=== PATIENT | female | born 1945 | race Caucasian/White ===

== ENCOUNTER → 2016-11-05 08:05 | Outpatient (CLI) | payer MEDICARE | END | disposition home or self-care (01) | LOC: D.US 08:05 | DX: R10.9 Unspecified abdominal pain (principal); R10.2 Pelvic and perineal pain; R42 Dizziness and giddiness ==

== ENCOUNTER 2016-11-10 14:39 | Inpatient (IN) | payer MEDICARE, OTHER ==
[~2016-11-10] VITALS: Ht 167.6 cm; Wt 71.4 kg
[2016-11-10 17:02] LABS: EOSINOPHILS 2.2 % (0-7); HEMATOCRIT 26.9 % (36.0-48.0); IMMATURE GRANULOCYTES 0.1 % (0-5); LYMPHOCYTES 26.2 % (15-50); MCHC 26.8 g/dL (31.0-37.0); MEAN PLATELET VOLUME 8.8 fL (7.4-10.4); MONOCYTES 10.2 % (2-11); NEUTROPHILS 60.3 % (40-80); PLATELET COUNT 462 10x3/uL (130-400); RBC 4.27 10x6/uL (4.00-5.40); RDW 21.4 % (11.5-14.5); WBC 7.1 10x3/uL (4.8-10.8)
[2016-11-10 17:05] LABS: MCH 16.9 pg (26.0-34.0)
[2016-11-10 17:06] LABS: HEMOGLOBIN 7.2 g/dL (12-16)
[2016-11-10 17:26] LABS: ALBUMIN 3.4 g/dL (3.4-5.0); ANION GAP 12.1 mmol/L (8-16); BILIRUBIN - TOTAL 0.22 mg/dL (0.2-1.3); CALCIUM 8.5 mg/dL (8.5-10.1); CARBON DIOXIDE 29.2 mmol/L (21.0-32.0); CREATININE - SERUM 0.8 mg/dL (0.6-1.3); POTASSIUM - SERUM 4.3 mmol/L (3.5-5.1); PROTEIN - SERUM 7.1 g/dL (6.4-8.2)
--- NOTE | 2016-11-10 21:25 | NUR ---
RECIEVED PT TO FLOOR FROM ED VIA WHEELCHAIR. PT TRANSFERED SELF TO BED. ALERT AND ORIENTED AND ABLE TO VERBALIZE NEEDS. IV IS PATENT AND SALINE LOC AT THIS TIME. PT DENIES ANY PAIN. VSS. PT IS ORIENTED TO ROOM AND USE OF CALL LIGHT. NO NEEDS ARE VERBALIZED AT THIS TIME. WILL CONTINUE TO MONITOR. SIDE RAILS ARE UP X 2. BED IS IN LOWEST POSITION. CALL LIGHT IS WITHIN REACH.
--- NOTE | 2016-11-10 23:50 | NUR ---
ADMIT ASSESSMENT COMPLETED. 1ST UNIT PRBC'S STARTED AT THIS TIME. VSS. WILL MONITOR. SIDE RAILS X 2. BED LOW. CALL LIGHT IN REACH.
[2016-11-11] MEDS ORDERED: ZOCOR20 MG PO (00:03)
[2016-11-11] MEDS ORDERED: BENTYL10 MG PO (00:04)
--- NOTE | 2016-11-11 00:05 | NUR ---
PT WITHOUT REACTION TO TRANSFUSION AT THIS TIME. VSS. WILL MONITOR. SIDE RAILS X 2. BED LOW. CALL LIGHT IN REACH.
[2016-11-11] MEDS ORDERED: KRILL OIL 1,001 EAC1 PO (00:06)
[2016-11-11] MEDS ORDERED: VITAMIN D31000 UNIT PO (00:06)
[2016-11-11] MEDS ORDERED: POTASSIUM99 M1 PO (00:08)
[2016-11-11] MEDS ORDERED: CO Q-10200 MG PO (00:08)
[2016-11-11] MEDS ORDERED: GLUCOSAMINE & C1 CAP PO (00:08)
[2016-11-11] MEDS ORDERED: PROBIOTIC1 EAC1 PO (00:09)
[2016-11-11] MEDS ORDERED: BAYER CHEWABLE81 MG PO (00:09)
[2016-11-11] MEDS ORDERED: CENTRUM SILVER1 EAC3 PO (00:10)
--- NOTE | 2016-11-11 01:50 | NUR ---
1ST UNIT PRBC'S FINISHED AND TUBE FLUSHING. VSS. PT REMAINED W/O REACTION. WILL MONITOR. SIDE RAILS X 2. BED LOW. CALL LIGHT IN REACH.
--- NOTE | 2016-11-11 03:35 | NUR ---
PT W/O REACTION AT THIS TIME. VSS. WILL MONITOR. SIDE RAILS X 2. BED LOW. CALL LIGHT IN REACH.
--- NOTE | 2016-11-11 03:35 | NUR ---
2ND UNIT PRBC'S INITIATED. VSS. WILL MONITOR. SIDE RAILS X 2. BED LOW. CALL LIGHT IN REACH.
[2016-11-11 05:20] VITALS: BP 130/63; Ht 167.6 cm; Wt 71.4 kg
--- NOTE | 2016-11-11 05:25 | NUR ---
TRANSFUSION COMPLETED AT THIS TIME AND LINE FLUSHING. VSS. PT REMAINED W/O REACTION. SIDE RAILS X 2. BED LOW. CALL LIGHT IN REACH.
--- NOTE | 2016-11-11 08:23 | NUR ---
PT SEEN AND ASSESSED. NO COMPLAINTS OF PAIN OR DIZZINESS. AWAITING DOCTOR TO SEE IF POSSIBLE DISCHARGE HOME. IS NOT PASSING ANY DARK STOOLS. FAMILY AT BEDSIDE. CALL LIGHT IN REACH
[2016-11-11 09:02] VITALS: BP 146/55
[2016-11-11 10:03] LABS: BASOPHILS 0.3 % (0-2); EOSINOPHILS 1.5 % (0-7); HEMATOCRIT 31.9 % (36.0-48.0); IMMATURE GRANULOCYTES 0.2 % (0-5); LYMPHOCYTES 16.4 % (15-50); MCHC 29.2 g/dL (31.0-37.0); MEAN PLATELET VOLUME 8.8 fL (7.4-10.4); MONOCYTES 9.7 % (2-11); NEUTROPHILS 71.9 % (40-80); PLATELET COUNT 386 10x3/uL (130-400); RDW 23.5 % (11.5-14.5); WBC 8.8 10x3/uL (4.8-10.8)
[2016-11-11 10:11] LABS: HEMOGLOBIN 9.3 g/dL (12-16); MCH 19.4 pg (26.0-34.0); MCV 66.5 fL (80.0-100.0)
[2016-11-11 10:39] LABS: ALBUMIN 3.1 g/dL (3.4-5.0); ANION GAP 12.4 mmol/L (8-16); BILIRUBIN - TOTAL 1.17 mg/dL (0.2-1.3); CALCIUM 8.3 mg/dL (8.5-10.1); CARBON DIOXIDE 26.4 mmol/L (21.0-32.0); CREATININE - SERUM 0.9 mg/dL (0.6-1.3); POTASSIUM - SERUM 3.8 mmol/L (3.5-5.1)
[2016-11-11 11:30] LABS: % SATURATION 57 % (15-55); IRON 259 ug/dl (35-150); TOTAL IRON BIND CAPACITY 451 ug/dl (260-445); UNSAT IRON BIND CAPACITY 192 ug/dl (150-375)
[2016-11-11 13:26] VITALS: BP 154/59
--- NOTE | 2016-11-11 15:22 | NUR ---
Patient Name: MADIHA DIXON Admission Status: ER Accout number: [id number] Admission Date: 11-10-2016 : 1945 Admission Diagnosis:ANEMIA, UNSPECIFIED Attending: MONIK Current LOS: 1 Anticipated DC Date: 11-13-2016 Planned Disposition: Home Primary Insurance: [facility] Discharge Planning Comments: CM MET WITH PATIENT REGARDING D/C NEEDS AND PLANS. PATIENT STATED SHE LIVES WITH HER SPOUSE (SAADIA) AND HE WILL DRIVE HER HOME AT DISCHARGE. PATIENT STATED THERE ARE NO STEPS OR STAIRS AT THEIR HOME. PATIENT STATED SHE IS INDEPENDENT WITH HER CARE AND HAS A WALKER, SHOWER CHAIR, AND ELEV. TOILET SEAT AT HOME. PATIENTS PCP IS DR. BAILEY AND PHARMACY IS [facility]. PATIENT HAS NOT HAD HOME HEALTH BEFORE AND DOES NOT WANT IT. CM WILL CONTINUE TO FOLLOW PATIENT WITH D/C NEEDS AND PLANS. PCP DR. BAILEY [facility]- [phone] SAADIA (SPOUSE) [phone] Paper And Prints Restorer: Selene Cyr Is the patient Alert and Oriented? Yes 0 * How many steps to enter\exit or inside your home? 0 0 * PCP DR. BAILEY 0 * Pharmacy [facility] 0 * Preadmission Environment Home with Family 0 * ADLs Independent 0 * Equipment Elevated [place] Seat Shower Chair Walker 0 * List name and contact numbers for known caregivers / representatives who currently or will assist patient after discharge: SAADIA (SPOUSE) [phone] * Community resources currently utilized None 0 * Additional services required to return to the preadmission environment? Yes 0 * Can the patient safely return to the preadmission environment? Yes 0 * Has this patient been hospitalized within the prior 30 days at any hospital? No 0 Grand Total: 0
[2016-11-11 16:28] VITALS: BP 133/55
--- NOTE | 2016-11-11 18:12 | NUR ---
PT HAS BEEN UP AD ALCIDES IN ROOM AND BATHROOM. SCDS CURRENTLY OFF AT PRESENT. NO ACTIVE BLEEDING NOTED AT THIS TIME. CALL LIGHT IN REACH
--- NOTE | 2016-11-11 19:46 | NUR ---
RECIEVED LYING IN BED WITH HOB ELEVATED. ALERT AND ORIENTED. PLEASANT AND COOPERATIVE. DENIES ANY PAIN. SL TO LEFT HAND PATENT.
[2016-11-11 20:00] VITALS: BP 123/60
[2016-11-12] VITALS: BP 135/73
[2016-11-12 04:00] VITALS: BP 129/65
[2016-11-12 05:49] LABS: BASOPHILS 0.3 % (0-2); EOSINOPHILS 0.1 % (0-7); HEMOGLOBIN 10.1 g/dL (12-16); IMMATURE GRANULOCYTES 0.3 % (0-5); LYMPHOCYTES 10.4 % (15-50); MCHC 28.9 g/dL (31.0-37.0); MEAN PLATELET VOLUME 8.9 fL (7.4-10.4); MONOCYTES 8.4 % (2-11); NEUTROPHILS 80.5 % (40-80); PLATELET COUNT 457 10x3/uL (130-400); RDW 24.4 % (11.5-14.5); WBC 9.3 10x3/uL (4.8-10.8)
[2016-11-12 05:57] LABS: MCH 19.1 pg (26.0-34.0)
[2016-11-12 06:19] LABS: ALBUMIN 3.4 g/dL (3.4-5.0); ANION GAP 11.8 mmol/L (8-16); BILIRUBIN - TOTAL 0.41 mg/dL (0.2-1.3); CALCIUM 9.2 mg/dL (8.5-10.1); CARBON DIOXIDE 28.2 mmol/L (21.0-32.0); CREATININE - SERUM 0.9 mg/dL (0.6-1.3); PROTEIN - SERUM 7.7 g/dL (6.4-8.2)
--- NOTE | 2016-11-12 07:00 | NUR ---
REPORT RECIEVED ASSUMED CARE. PATIENT IN BED WITH IV INTACT. NO COMPLAINTS AT THIS TIME. ASKING FOR 7 UP BC STILL A LITTLE NAUSEATED. GIVEN BY THERMAL SPRAY OPERATOR. PATIENT SITTING UP IN CHAIR WITH CALL LIGHT WITHIN REACH.
[2016-11-12 08:27] VITALS: BP 113/66
--- NOTE | 2016-11-12 08:50 | NUR ---
PATIENT IV LEAKING. DC'D WITH CATH TIP INTACT. NEW IV 20 G RESTARTED IN LEFT HAND X 1 STICK. PATIENT RECIEVED ZOFRAN FOR NAUSEA. IN BED WITH NO OTHER COMPLAINTS. CALL LIGHT WITHIN REACH. FAMILY AT BEDSIDE.
[2016-11-12 10:17] LABS: ERYTHROPOIETIN 160.6 mIU/mL (2.6-18.5)
[2016-11-12 10:17] LABS: FOLATE (FOLIC ACID) - SERUM >20.0 ng/mL (>3.0)
--- NOTE | 2016-11-12 11:00 | NUR ---
PATIENT IN BED WITH NO COMPLAINTS. STATING FEELING MUCH BETTER. IV INTACT. FAMILY AT BESIDE. CALL LIGHT WITHIN REACH.
[2016-11-12] MEDS ORDERED: MIRALAX17 GM PO (12:27)
[2016-11-12 13:47] VITALS: BP 120/64
--- NOTE | 2016-11-12 14:31 | NUR ---
PT IV D/C, CATHETER INTACT AND DRSG APPLIED. TOLERATED WELL. DISCHARGE INSTRUCTIONS GIVEN TO PT AND FAMILY. ALL QUESTIONS ANSWERED.
--- NOTE | 2016-11-12 14:45 | NUR ---
PATIENT ESCORTED OUT OF HOSPITAL VIA WC WITH PERSONAL BELONGINGS TO PRIVATE VEHICLE BY HOSPITAL VOLUNTEER AND .
[2016-11-12 15:20] LABS: SPE - A/G RATIO 1.1 (0.7-1.7); SPE - ALBUMIN 3.3 g/dL (2.9-4.4); SPE - ALPHA-1 GLOBULIN 0.3 g/dL (0.0-0.4); SPE - ALPHA-2 GLOBULIN 0.8 g/dL (0.4-1.0); SPE - BETA GLOBULIN 1.1 g/dL (0.7-1.3); SPE - GAMMA GLOBULIN 0.9 g/dL (0.4-1.8); SPE - M-SPIKE Not Observed g/dL (Not Observed); SPE - TOTAL PROTEIN 6.4 g/dL (6.0-8.5)
--- NOTE | 2016-11-12 15:36 | NUR ---
PATIENT DISCHARGED HOME TODAY WITH NO NEEDS - SPOUSE DRIVING HER.
== END 2016-11-12 16:17 | disposition home or self-care (01) | DRG 812 ==
LOC: D.ER 14:39 → D.MS 19:23
PROVIDERS: Emergency Medicine; Internal Medicine Hematology & Oncology; ADMIT Family Medicine
DX: D64.9 Anemia, unspecified (principal); R55 Syncope and collapse; I10 Essential (primary) hypertension; K21.9 Gastro-esophageal reflux disease without esophagitis; Z85.828 Personal history of other malignant neoplasm of skin; K59.00 Constipation, unspecified; R11.10 Vomiting, unspecified; R63.4 Abnormal weight loss; Z68.25 Body mass index [BMI] 25.0-25.9, adult

== ENCOUNTER → 2016-11-30 09:12 | Outpatient (CLI) | payer MEDICARE, OTHER ==
[2016-11-11 05:20] VITALS: BMI 25.4
[~2016-11-30 09:12] MED LIST: BAYER CHEWABLE81 MG PO; BENTYL10 MG PO; CENTRUM SILVER1 EAC3 PO; CO Q-10200 MG PO; GLUCOSAMINE & C1 CAP PO; KRILL OIL 1,001 EAC1 PO; MIRALAX17 GM PO; POTASSIUM99 M1 PO; PROBIOTIC1 EAC1 PO; VITAMIN D31000 UNIT PO; ZOCOR20 MG PO
== END | disposition home or self-care (01) ==
LOC: D.RAD 11-29 09:22
DX: R11.0 Nausea (principal); R10.9 Unspecified abdominal pain

== ENCOUNTER 2016-11-30 11:16 | Inpatient (IN) | payer MEDICARE, OTHER ==
[~2016-11-30] VITALS: Ht 167.6 cm; Wt 71.1 kg
[2016-11-30 11:54] LABS: BASOPHILS 0.2 % (0-2); EOSINOPHILS 0.1 % (0-7); HEMATOCRIT 38.7 % (36.0-48.0); HEMOGLOBIN 11.5 g/dL (12-16); IMMATURE GRANULOCYTES 0.2 % (0-5); MCH 20.4 pg (26.0-34.0); MCHC 29.7 g/dL (31.0-37.0); MCV 68.5 fL (80.0-100.0); MEAN PLATELET VOLUME 9.2 fL (7.4-10.4); MONOCYTES 15.8 % (2-11); NEUTROPHILS 69.7 % (40-80); PLATELET COUNT 456 10x3/uL (130-400); RBC 5.65 10x6/uL (4.00-5.40); RDW 26.4 % (11.5-14.5); WBC 9.5 10x3/uL (4.8-10.8)
[2016-11-30 12:10] LABS: ALBUMIN 3.7 g/dL (3.4-5.0); ANION GAP 13.5 mmol/L (8-16); BILIRUBIN - TOTAL 0.5 mg/dL (0.2-1.3); CALCIUM 9.1 mg/dL (8.5-10.1); CARBON DIOXIDE 33.1 mmol/L (21.0-32.0); PROTEIN - SERUM 7.4 g/dL (6.4-8.2)
[2016-11-30 12:14] LABS: POTASSIUM - SERUM 2.6 mmol/L (3.5-5.1)
[2016-11-30 14:35] LABS: APPEARANCE HAZY (CLEAR); COLOR YELLOW (YELLOW); GLUCOSE NEGATIVE (NEGATIVE); LEUKOCYTE ESTERASE NEGATIVE (NEGATIVE); NITRITE NEGATIVE (NEGATIVE); PROTEIN TRACE mg/dL (NEGATIVE)
[2016-11-30 14:36] LABS: BACTERIA FEW /hpf (NONE SEEN); BILIRUBIN NEGATIVE (NEGATIVE); EPITHELIAL CELLS OCC /hpf (0-5); HYALINE CAST 0-5 /lpf (NONE SEEN); KETONE MODERATE mg/dL (NEGATIVE); MUCUS <1+ /lpf (NONE SEEN); RED CELLS - URINE 0-5 /hpf (0-5); WHITE CELLS - URINE RARE /hpf (0-5)
[2016-11-30 17:04] VITALS: BP 129/72; BMI 24.5
--- NOTE | 2016-11-30 17:17 | NUR ---
RECEIVED TO ROOM 2226 VIA BED FROM ED. A/O X3. NO C/O AT THIS TIME. SKIN IS INTACT WITHOUT REDNESS. DENIES NEEDS. BOWEL SOUNDS PRESENT AND ACTIVE X4.
[2016-11-30 20:00] VITALS: BP 117/64
--- NOTE | 2016-11-30 23:00 | NUR ---
PATIENT IS AWAKE, ALERT AND ORIENTED X'S 4. RESPIRATIONS ARE EVEN AND UNLABORED ON ROOM AIR. NO SIGNS OF DISTRESS NOTED. BED IN LOWEST POSITION, CALL LIGHT IN REACH. BED RAILS UP X'S 2. ASSISTED PATIENT TO THE BATHROOM. TOLD HER TO PULL THE STRING WHEN SHE IS FINISHED.
--- NOTE | 2016-11-30 23:30 | NUR ---
CHILD DEVELOPMENT INSTRUCTOR ASSISTED PATIENT BACK TO BED.
[2016-12-01] VITALS: BP 106/52
[2016-12-01 06:02] LABS: BASOPHILS 0.3 % (0-2); EOSINOPHILS 0.9 % (0-7); HEMATOCRIT 34.6 % (36.0-48.0); HEMOGLOBIN 10.1 g/dL (12-16); IMMATURE GRANULOCYTES 0.3 % (0-5); LYMPHOCYTES 23.8 % (15-50); MCH 20.3 pg (26.0-34.0); MCHC 29.2 g/dL (31.0-37.0); MCV 69.6 fL (80.0-100.0); MEAN PLATELET VOLUME 9.4 fL (7.4-10.4); MONOCYTES 14.1 % (2-11); NEUTROPHILS 60.6 % (40-80); PLATELET COUNT 407 10x3/uL (130-400); RBC 4.97 10x6/uL (4.00-5.40); RDW 26.8 % (11.5-14.5)
[2016-12-01 06:16] LABS: ALBUMIN 2.8 g/dL (3.4-5.0); ALKALINE PHOSPHATASE 52 U/L (46-116); ALT (SGPT) 33 U/L (10-68); CALCIUM 8.3 mg/dL (8.5-10.1); CARBON DIOXIDE 28.5 mmol/L (21.0-32.0); CHLORIDE - SERUM 96 mmol/L (98-107); MAGNESIUM - SERUM 2.3 mg/dL (1.8-2.4); PHOSPHOROUS 3.6 mg/dL (2.5-4.9); PROTEIN - SERUM 5.9 g/dL (6.4-8.2); SODIUM 136 mmol/L (136-145)
[2016-12-01 06:20] LABS: WBC 5.9 10x3/uL (4.8-10.8)
[2016-12-01 06:38] LABS: CALC OSMOLALITY 270 mosm/kg (275-300); CREATININE - SERUM 0.7 mg/dL (0.6-1.3); UREA NITROGEN 16 mg/dL (7-18); eGFR NON AFRICAN AMERICAN 87 mL/min (90-120)
[2016-12-01 06:39] LABS: GLUCOSE 60 mg/dL (74-106); POTASSIUM - SERUM 2.7 mmol/L (3.5-5.1)
--- NOTE | 2016-12-01 08:12 | NUR ---
AWAKE AND ALERT. ORIENTED X3. NO C/O AT THIS TIME. LUNGS ARE CLEAR BILATERALLY, NO COUGH NOTED. SKIN IS INTACT WITHOUT REDNESS. IV TO RIGHT AC IS PATNET WITHOUT REDNESS AT INSERTION SITE. BOWEL SOUNDS ARE SLIGHTLY HYPOACTIVE THIS AM. DENIES NEEDS.
[2016-12-01 08:42] VITALS: BP 123/62
--- NOTE | 2016-12-01 09:00 | NUR ---
OFF UNIT VIA FOR TEST. TOOK AM MEDS WITHOUT DIFFICULTY.
--- NOTE | 2016-12-01 10:00 | NUR ---
RETURNED FROM TESTING. NO C/O AT THIS TIME. DENIES NEEDS.
--- NOTE | 2016-12-01 10:42 | NUR ---
Patient Name: MADIHA DIXON Admission Status: ER Accout number: [id number] Admission Date: 11-30-2016 : 1945 Admission Diagnosis: Attending: RAZA VANCE Current LOS: 1 Anticipated DC Date: 12-03-2016 Planned Disposition: Home Primary Insurance: [facility] Discharge Planning Comments: CM MET WITH PATIENT AND SPOUSE (SAADIA) REGARDING D/C NEEDS AND PLANS. PATIENT STATED HER SPOUSE WILL DRIVE HER HOME AT DISCHARGE. PATIENT STATED THERE ARE NO STEPS OR STAIRS AT HER HOME. PATIENT STATED SHE IS INDEPENDENT WITH HER CARE AND HAS A SHOWER CHAIR, WALK IN TUB, AND CANE AT HER HOME. PATIENTS PCP IS DR. BAILEY IN THE [facility] AND PHARMACY IS [facility]. PATIENT DOES NOT WANT HOME HEALTH AT THIS TIME. CM WILL CONTINUE TO FOLLOW PATIENT WITH D/C NEEDS AND PLANS. PCP DR. BAILEY [facility]- [phone] SAADIA (SPOUSE) [phone] Talent Scout: Selene Cyr Is the patient Alert and Oriented? Yes 0 * How many steps to enter\exit or inside your home? 0 0 * PCP DR. BAILEY 0 * Pharmacy [facility] 0 * Preadmission Environment Home with Family 0 * ADLs Independent 0 * Equipment Cane Shower Chair 0 * Other Equipment WALK IN TUB 0 * List name and contact numbers for known caregivers / representatives who currently or will assist patient after discharge: SAADIA (SPOUSE) [phone] 0 * Community resources currently utilized None 0 * Additional services required to return to the preadmission environment? Yes 0 * Can the patient safely return to the preadmission environment? Yes 0 * Has this patient been hospitalized within the prior 30 days at any hospital? Yes 0 Grand Total: 0
[2016-12-01 12:52] VITALS: BP 116/60
[2016-12-01 14:28] VITALS: Ht 167.6 cm; Wt 71.1 kg
--- NOTE | 2016-12-01 15:00 | NUR ---
STARTED ENEMAS PER MD ORDERS.
--- NOTE | 2016-12-01 15:30 | NUR ---
HAD 800CC ENEMA. UP TO BR TO EVACUATE. NO STOOL RETURNED.
--- NOTE | 2016-12-01 16:00 | NUR ---
GIVEN 800 CC TAP WATER ENEMA. WILL MONITOR.
--- NOTE | 2016-12-01 16:30 | NUR ---
UP TO BR TO EVACUATE ENEMA. ONLY FLUID RETURNED. NO PARTICULATES AT ALL.
--- NOTE | 2016-12-01 16:50 | NUR ---
GIVEN LAST ENEMA PER RECTUM.
[2016-12-01 16:56] VITALS: BP 137/58
--- NOTE | 2016-12-01 17:10 | NUR ---
UP TO BR WITH SBA. EVACUATED ONLY LIQUID. NO STOOL NOTED. SKIN CARE PER SELF. TO SINK TO PERFORM ADL'S PER SELF.
--- NOTE | 2016-12-01 18:41 | NUR ---
NO RESULTS FROM ENEMAS AT ALL. NO CHANGES NOTED. DENIES NEEDS.
[2016-12-01 20:00] VITALS: BP 125/54
[2016-12-02] VITALS (13 sets, daily range): BP systolic 105–159; BP diastolic 50–72
--- NOTE | 2016-12-02 02:00 | NUR ---
PT IN BED WITH NO DISTRESS. RESPIRATIONS EVEN AND UNLABORED. SIDE RAILS X 2. BED IS LOW. CALL LIGHT IN REACH.
--- NOTE | 2016-12-02 02:04 | NUR ---
REC'D AT CHGE OF SHIFT COMING OUT OF BATH RM.ASSISTED TO BED.DENIES ANY COMPLAINTS OR DISCOMFORT AT PRESENT TIME. WILL CONTINUE TO MONITOR FOR ANY CHGES. AND FOLLOW CURRENT PLAN OF CARE
[2016-12-02 05:38] LABS: BASOPHILS 0.3 % (0-2); HEMATOCRIT 36.9 % (36.0-48.0); HEMOGLOBIN 10.8 g/dL (12-16); IMMATURE GRANULOCYTES 0.4 % (0-5); LYMPHOCYTES 17.9 % (15-50); MCH 20.5 pg (26.0-34.0); MCHC 29.3 g/dL (31.0-37.0); MCV 69.9 fL (80.0-100.0); MEAN PLATELET VOLUME 9.4 fL (7.4-10.4); MONOCYTES 16.6 % (2-11); NEUTROPHILS 63.8 % (40-80); PLATELET COUNT 411 10x3/uL (130-400); RBC 5.28 10x6/uL (4.00-5.40); RDW 27.1 % (11.5-14.5)
[2016-12-02 05:42] LABS: WBC 7.7 10x3/uL (4.8-10.8)
[2016-12-02 05:48] LABS: ALBUMIN 3.1 g/dL (3.4-5.0); ANION GAP 19.1 mmol/L (8-16); BILIRUBIN - TOTAL 0.52 mg/dL (0.2-1.3); CALCIUM 8.6 mg/dL (8.5-10.1); CARBON DIOXIDE 24.9 mmol/L (21.0-32.0); CREATININE - SERUM 0.8 mg/dL (0.6-1.3); MAGNESIUM - SERUM 2.3 mg/dL (1.8-2.4); PHOSPHOROUS 3.6 mg/dL (2.5-4.9); PROTEIN - SERUM 6.3 g/dL (6.4-8.2)
--- NOTE | 2016-12-02 07:15 | NUR ---
REPORT RECIEVED, CARE OF PT ASSUMED. NO COMPLAINTS AT THIS TIME. AT BEDSIDE. BED IN LOWEST POSITION, SIDE RAILS UP X 2, CALL LIGHT WITHIN REACH.
--- NOTE | 2016-12-02 12:51 | NUR ---
NUTRITION MONITORING & EVAL PT CURRENTLY NPO FOR PROCEDURE. WILL PROVIDE DIET WHEN RESUMED. MONITOR INTAKE. RD FOLLOWING
--- NOTE | 2016-12-02 17:45 | NUR ---
PT OFF FLOOR FOR COLONOSCOPY AT THIS TIME.
--- NOTE | 2016-12-02 18:32 | NUR ---
KRYSTYNA INK 2MLS TATOOD.
--- NOTE | 2016-12-02 18:49 | NUR ---
NOTED IV CATHETER TO RIGHT AC INFILTRATED. REMOVED IV WITH CATHETER INTACT. WARM MOIST CLOTHS APPLIED TO RIGHT UPPER EXTREMITY. WILL CONTINUE TO MONITOR.
--- NOTE | 2016-12-02 19:00 | NUR ---
PT STILL GONE FROM FLOOR FOR COLONOSCOPY. IN ROOM.
--- NOTE | 2016-12-02 19:35 | NUR ---
ATTEMPTED TO RESITE IV AND UNSUCESSFUL X2. INFORMED DIA BALLARD ON MED/SURG FLOOR.
[2016-12-03] VITALS (10 sets, daily range): BP systolic 99–148; BP diastolic 53–69
[2016-12-03 05:41] LABS: BASOPHILS 0.2 % (0-2); EOSINOPHILS 0.2 % (0-7); HEMATOCRIT 34.4 % (36.0-48.0); HEMOGLOBIN 10.1 g/dL (12-16); IMMATURE GRANULOCYTES 0.2 % (0-5); LYMPHOCYTES 11.2 % (15-50); MCH 20.4 pg (26.0-34.0); MCHC 29.4 g/dL (31.0-37.0); MCV 69.4 fL (80.0-100.0); MEAN PLATELET VOLUME 9.1 fL (7.4-10.4); MONOCYTES 14.7 % (2-11); NEUTROPHILS 73.5 % (40-80); PLATELET COUNT 396 10x3/uL (130-400); RBC 4.96 10x6/uL (4.00-5.40); RDW 27.2 % (11.5-14.5); WBC 8.9 10x3/uL (4.8-10.8)
[2016-12-03 06:05] LABS: ANION GAP 22.2 mmol/L (8-16); BILIRUBIN - TOTAL 0.6 mg/dL (0.2-1.3); CALCIUM 8.7 mg/dL (8.5-10.1); CARBON DIOXIDE 19.7 mmol/L (21.0-32.0); CREATININE - SERUM 0.8 mg/dL (0.6-1.3); MAGNESIUM - SERUM 2.3 mg/dL (1.8-2.4); PHOSPHOROUS 3.5 mg/dL (2.5-4.9); PROTEIN - SERUM 6.2 g/dL (6.4-8.2)
[2016-12-03 06:09] LABS: POTASSIUM - SERUM 2.9 mmol/L (3.5-5.1)
--- NOTE | 2016-12-03 06:20 | NUR ---
PATIENT IV STARTED IN LEFT HAND. 20 G X 1 STICK. NS AND K+ RIDER INFUSING AT THIS TIME. PATIENT HAS NO COMPLAINTS. NGT LIWS. CALL LIGHT WITHIN REACH.
--- NOTE | 2016-12-03 07:00 | NUR ---
REPORT RECIEVED, ASSUMED CARE OF PT.
--- NOTE | 2016-12-03 12:01 | NUR ---
PT RESTING IN BED. NO COMPLAINTS AT THIS TIME. SIDE RAILS UP X 2, BED IN LOWEST POSITION, CALL LIGHT WITHIN REACH.
--- NOTE | 2016-12-03 15:15 | NUR ---
PRE-OP COMPLETE. PT LEFT FLOOR WITH OR.
--- NOTE | 2016-12-03 16:16 | NUR ---
PRIOR TO SURGERY PT STATED HER HAS LEFT AND WOULD BE BACK AROUND 1800.
--- NOTE | 2016-12-03 16:48 | NUR ---
PT IN SURGERY.
--- NOTE | 2016-12-03 18:50 | NUR ---
150 ML PINK FLUID EMPTIED FROM ROBB DRAIN
--- NOTE | 2016-12-03 19:15 | NUR ---
PATIENT TO ROOM AT THIS TIME. VS STABLE. IV INTACT. NGT TO LIWS. ROBB DRAIN EMPTIED AT THIS TIME. LITE RED FLUID IN DRAIN. DRESSINGS TO ABDOMEN CDI. PATIENT STATES ONLY SMALL AMOUNT OF PAIN. HEALTH PHYSICIST ORDERED. FAMILY AT BEDSIDE. CALL LIGHT WITHIN REACH.
--- NOTE | 2016-12-03 21:30 | NUR ---
PATIENT IN BED WITH NO COMPLAINTS AT THIS TIME. IV INTACT. NGT LIWS. BSCDS ON AND WORKING. VS STABLE. CALL LIGHT WITHIN REACH.
--- NOTE | 2016-12-04 00:15 | NUR ---
PATIENT IN BED WITH EYES CLOSED RESTING QUIETLY. NO COMPLAINTS OR SIGNS OF DISTRESS. CALL LIGHT WITHIN REACH.
--- NOTE | 2016-12-04 02:45 | NUR ---
PATIENT IN BED WITH IV INTACT. NO COMPLAINTS. NGT LIWS. BSCDS ON AND WORKING. ROBB DRAIN COMPRESSED, NO DRAINAGE AT THIS TIME. CALL LIGHT WITHIN REACH.
[2016-12-04 04:09] VITALS: BP 109/59
--- NOTE | 2016-12-04 04:50 | NUR ---
PATIENT IN BED WITH IV INTACT. NGT TO LIWS. EYES CLOSED RESTING QUIETLY. BSCDS ON. CALL LIGHT WITHIN REACH.
[2016-12-04 06:10] LABS: BASOPHILS 0.1 % (0-2); EOSINOPHILS 0 % (0-7); HEMATOCRIT 35.5 % (36.0-48.0); HEMOGLOBIN 10.4 g/dL (12-16); IMMATURE GRANULOCYTES 0.4 % (0-5); LYMPHOCYTES 5.7 % (15-50); MCH 20.6 pg (26.0-34.0); MCHC 29.3 g/dL (31.0-37.0); MCV 70.4 fL (80.0-100.0); MEAN PLATELET VOLUME 9.7 fL (7.4-10.4); MONOCYTES 7.1 % (2-11); NEUTROPHILS 86.7 % (40-80); PLATELET COUNT 322 10x3/uL (130-400); RBC 5.04 10x6/uL (4.00-5.40); RDW 27.3 % (11.5-14.5); WBC 10.7 10x3/uL (4.8-10.8)
[2016-12-04 06:27] LABS: ALKALINE PHOSPHATASE 43 U/L (46-116); ALT (SGPT) 28 U/L (10-68); BILIRUBIN - TOTAL 0.56 mg/dL (0.2-1.3); CALCIUM 7.8 mg/dL (8.5-10.1); CARBON DIOXIDE 18.7 mmol/L (21.0-32.0); CHLORIDE - SERUM 104 mmol/L (98-107); CREATININE - SERUM 0.7 mg/dL (0.6-1.3); MAGNESIUM - SERUM 1.9 mg/dL (1.8-2.4); PHOSPHOROUS 3.3 mg/dL (2.5-4.9); PROTEIN - SERUM 4.9 g/dL (6.4-8.2); SODIUM 137 mmol/L (136-145); UREA NITROGEN 12 mg/dL (7-18); eGFR NON AFRICAN AMERICAN 87 mL/min (90-120)
[2016-12-04 06:28] LABS: ALBUMIN 1.9 g/dL (3.4-5.0); CALC OSMOLALITY 271 mosm/kg (275-300); GLUCOSE 62 mg/dL (74-106); POTASSIUM - SERUM 4.3 mmol/L (3.5-5.1)
--- NOTE | 2016-12-04 06:47 | NUR ---
PATIENT IN BED WITH IV INTACT. NO COMPLAINTS AT THIS TIME. FAMILY AT BEDSIDE. CALL LIGHT WITHIN REACH.
--- NOTE | 2016-12-04 07:30 | NUR ---
RECIEVED PT DURING WALKING ROUNDS. PT RETING IN BED WITH NO COMPLAINTS OF PAIN OR DISCOMFORT AT THIS TIME. ASSESSMENT DONE PER FLOWSHEET. BED IN LOW POSITION AND CALL LIGHT WITHIN REACH. WILL CONTINUE TO [facility].
[2016-12-04 08:10] VITALS: BP 106/62
--- NOTE | 2016-12-04 10:45 | NUR ---
RECIEVED ORDER FOR KUB DUE TO PTS NG TUBE HAVING NO OUTPUT AND PT STATING SHE FELT IT WAS COMING OUT. KUB RESULTED AND WAS INSTRUCTED TO ADVANCE NG TUBE 3-4CM, ADVANCED NG TUBE AT THIS TIME, PT TOLERATED WELL. BED IN LOW POSITION AND CALL LIGHT WITHIN REACH. WILL CONTINUE TO MONITOR.
[2016-12-04 12:40] VITALS: BP 121/53
[2016-12-04 15:57] VITALS: BP 119/61
[2016-12-04 20:00] VITALS: BP 106/55
--- NOTE | 2016-12-04 22:50 | NUR ---
PT ALERT & ORIENTED. LEFT HAND IV LEAKING. RESITED TO LEFT FOREARM BY DIA ONEAL. REEYS CATHETER. EMPTIED ROBB DRAIN 100 ML AT BEGINNING OF SHIFT. SUPERVISOR SMALL APPLIANCE ASSEMBLY FOR PAIN CONTROL ALTHOUGH PT RARELY USES IT. STATES SHE HAS DISCOMFORT NO PAIN. NO NEEDS WILL CONTINUE TO MONITOR.
[2016-12-05] VITALS: BP 114/55
[2016-12-05 04:00] VITALS: BP 114/53
[2016-12-05 05:16] LABS: BASOPHILS 0.1 % (0-2); EOSINOPHILS 0 % (0-7); HEMATOCRIT 31.2 % (36.0-48.0); HEMOGLOBIN 9.2 g/dL (12-16); IMMATURE GRANULOCYTES 0.3 % (0-5); LYMPHOCYTES 6.1 % (15-50); MCH 20.6 pg (26.0-34.0); MCHC 29.5 g/dL (31.0-37.0); NEUTROPHILS 82.5 % (40-80); RBC 4.46 10x6/uL (4.00-5.40); RDW 27.6 % (11.5-14.5); WBC 10.7 10x3/uL (4.8-10.8)
[2016-12-05 05:17] LABS: PLATELET COUNT 230 10x3/uL (130-400)
[2016-12-05 05:39] LABS: ALBUMIN 1.8 g/dL (3.4-5.0); ALKALINE PHOSPHATASE 50 U/L (46-116); ALT (SGPT) 26 U/L (10-68); BILIRUBIN - TOTAL 0.41 mg/dL (0.2-1.3); CALC OSMOLALITY 284 mosm/kg (275-300); CARBON DIOXIDE 23.1 mmol/L (21.0-32.0); CHLORIDE - SERUM 110 mmol/L (98-107); CREATININE - SERUM 0.7 mg/dL (0.6-1.3); GLUCOSE 85 mg/dL (74-106); MAGNESIUM - SERUM 2.1 mg/dL (1.8-2.4); PHOSPHOROUS 2.5 mg/dL (2.5-4.9); PROTEIN - SERUM 5.1 g/dL (6.4-8.2); SODIUM 144 mmol/L (136-145); UREA NITROGEN 11 mg/dL (7-18); eGFR NON AFRICAN AMERICAN 87 mL/min (90-120)
[2016-12-05 05:53] LABS: POTASSIUM - SERUM 2.8 mmol/L (3.5-5.1)
--- NOTE | 2016-12-05 07:30 | NUR ---
RECIEVED PT DURING WALKING ROUNDS, PT RESTING IN BED WITH NO COMPLAINTS OF PAIN OR DISCOMFORT AT THIS TIME. ROBB DRAIN EMPTIED. ASSESSMENT DONE PER FLOWSHEET. BED IN LOW POSITION AND CALL LIGHT WITHIN REACH. WILL CONTINUE TO MONITOR.
[2016-12-05 08:20] VITALS: BP 110/54
--- NOTE | 2016-12-05 09:45 | NUR ---
PT COMPLAINS OF PULLING FEELING AT ROBB DRAIN SITE, CALL PLACED TO ABOUT AMOUNT OF OUTPUT AND PTS PAIN. RECIEVED ORDERS TO PULL DRAIN IF PAIN CONTINUES. INFORMED PT OF PLAN OF CARE, WILL CONTINUE TO MONITOR.
[2016-12-05 12:43] VITALS: BP 107/52
[2016-12-05 15:44] VITALS: BP 114/57
[2016-12-05 19:00] VITALS: BP 119/53
[2016-12-06] VITALS: BP 110/55
--- NOTE | 2016-12-06 03:17 | NUR ---
RN NOTE: PT RESTING QUIETLY IN SEMI ELLER'S POSITION WITY EYES CLOSED AND EASY RESPIRATIONS. IV IN LEFT FA PATENT WITH NS INFUSING AT 125 ML / HR. DILAUDID ELECTRONICS INSTRUCTOR IN USE FOR PAIN CONTROL. REYES CATHETER DRAINING TO GRAVITY WITH YELLOW URINE IN COLLECTION BAG. O2 IN USE AT 2L VIA NC. WILL CONTINUE TO MONITOR FOR NEEDS. SIDE RAILS UP X2 FOR SAFETY.
[2016-12-06 04:00] VITALS: BP 110/53
--- NOTE | 2016-12-06 07:50 | NUR ---
PT AOX4 RESP EVEN AND NONLABORED PT DENIES NEEDS AT THIS TIME IV TO LEFT FOREARM PATENT AND INTACT AT THIS TIME SRX2 BED AT LOWEST SETTING CALL LIGHT WITHIN REACH WILL CONTINUE TO MONITOR
[2016-12-06 10:01] VITALS: BP 107/57
[2016-12-06 13:13] VITALS: BP 102/52
[2016-12-06 19:00] VITALS: BP 122/55
--- NOTE | 2016-12-06 20:57 | NUR ---
REC'D. IN BED.VISITOR AT BEDSIDE ABD LAP SITES X3 WITHOUT REDNESS OR DRAINAGE.WILL CONTINUE TO MONITOR FOR ANY CHGES. AND FOLLOW CURRENT PLAN OF CARE.
--- NOTE | 2016-12-07 02:00 | NUR ---
PT IN BED WITH NO DISTRESS. RESPIRATIONS EVEN AND UNLABORED. SIDE RAILS X 2. BED IS LOW. CALL LIGHT IN REACH.
[2016-12-07 04:00] VITALS: BP 124/63
[2016-12-07 04:37] LABS: BASOPHILS 0.1 % (0-2); EOSINOPHILS 1.7 % (0-7); HEMATOCRIT 29.9 % (36.0-48.0); HEMOGLOBIN 8.9 g/dL (12-16); IMMATURE GRANULOCYTES 0.3 % (0-5); MCH 20.6 pg (26.0-34.0); MCHC 29.8 g/dL (31.0-37.0); MCV 69.4 fL (80.0-100.0); MEAN PLATELET VOLUME 9.1 fL (7.4-10.4); MONOCYTES 10.1 % (2-11); NEUTROPHILS 76.8 % (40-80); PLATELET COUNT 206 10x3/uL (130-400); RBC 4.31 10x6/uL (4.00-5.40); RDW 27.9 % (11.5-14.5)
[2016-12-07 04:53] LABS: CALCIUM 7.6 mg/dL (8.5-10.1); CARBON DIOXIDE 23.8 mmol/L (21.0-32.0); CHLORIDE - SERUM 108 mmol/L (98-107); SODIUM 142 mmol/L (136-145)
[2016-12-07 05:04] LABS: CALC OSMOLALITY 278 mosm/kg (275-300); CREATININE - SERUM 0.4 mg/dL (0.6-1.3); GLUCOSE 66 mg/dL (74-106); UREA NITROGEN 7 mg/dL (7-18); eGFR NON AFRICAN AMERICAN > 90 mL/min (90-120)
[2016-12-07 05:05] LABS: POTASSIUM - SERUM 2.9 mmol/L (3.5-5.1)
--- NOTE | 2016-12-07 07:50 | NUR ---
PT AOX4 RESP EVEN AND NONLABORE PT DENIES NEED AT THIS TIME IV TO LEFT FOREARM PATENT AND INTACT AT THIS TIME SRX2 BED AT LOWEST SETTING CALL LIGHT WITHIN REACH WILL CONTINUE TO MONITOR
[2016-12-07 08:18] VITALS: BP 119/56
[2016-12-07 10:49] LABS: MAGNESIUM - SERUM 1.8 mg/dL (1.8-2.4)
[2016-12-07 10:50] LABS: PHOSPHOROUS 1.8 mg/dL (2.5-4.9)
[2016-12-07 12:44] VITALS: BP 110/56
--- NOTE | 2016-12-07 12:49 | NUR ---
NUTRITION F/U CHART REVIEWED. PT REMAINS NPO. RECOMMEND STARTING NUTRITION SUPPORT IF UNABLE TO TOLERATE PO IN 24 [address] FOLLOWING
[2016-12-07 16:28] VITALS: BP 124/64
[2016-12-07 20:00] VITALS: BP 134/51
--- NOTE | 2016-12-07 20:15 | NUR ---
REC'D. IN BED. AAO X3.ABD. NO-DISTENDED LAP SITES X3. WITHOUT REDNESS OR DRAINAGE.ROBB DRAIN WITH SEROUS DRAINAGE NOTED.DENIES PAIN AT PRESENT TIME. STATES PASSING GAS NOW. TOLERATING CL. LIQ. DIET NO NAUSEA.REYES PATENT DRAINING CONCENTRATED URINE WILL CONTINUE TO MONITOR FOR ANY CHGES AND FOLLOW CURRENT PLAN OF CARE.
[2016-12-08] VITALS: BP 130/62
--- NOTE | 2016-12-08 05:00 | NUR ---
EYES CLOSED RESPIRATIONS WITH EASE AND UNLABORED.
[2016-12-08 05:51] LABS: BASOPHILS 0.1 % (0-2); HEMATOCRIT 30.2 % (36.0-48.0); HEMOGLOBIN 9.3 g/dL (12-16); IMMATURE GRANULOCYTES 0.4 % (0-5); LYMPHOCYTES 12.4 % (15-50); MCHC 30.8 g/dL (31.0-37.0); MCV 68.3 fL (80.0-100.0); MEAN PLATELET VOLUME 9.2 fL (7.4-10.4); MONOCYTES 10.3 % (2-11); NEUTROPHILS 75.8 % (40-80); PLATELET COUNT 214 10x3/uL (130-400); RBC 4.42 10x6/uL (4.00-5.40); RDW 27.9 % (11.5-14.5); WBC 7.8 10x3/uL (4.8-10.8)
[2016-12-08 06:38] LABS: ALBUMIN 1.5 g/dL (3.4-5.0); ALKALINE PHOSPHATASE 50 U/L (46-116); ALT (SGPT) 22 U/L (10-68); CALC OSMOLALITY 274 mosm/kg (275-300); CALCIUM 7.9 mg/dL (8.5-10.1); CHLORIDE - SERUM 103 mmol/L (98-107); CREATININE - SERUM 0.4 mg/dL (0.6-1.3); GLUCOSE 76 mg/dL (74-106); PROTEIN - SERUM 4.6 g/dL (6.4-8.2); SODIUM 139 mmol/L (136-145); UREA NITROGEN 7 mg/dL (7-18); eGFR NON AFRICAN AMERICAN > 90 mL/min (90-120)
[2016-12-08 07:14] LABS: POTASSIUM - SERUM 2.7 mmol/L (3.5-5.1)
--- NOTE | 2016-12-08 08:45 | NUR ---
PT AOX4 RESP EVEN AND NONLABORED PT DENIES NEEDS AT THIS TIME IV TO LEFT ARM PATENT AND INTACT AT THIS TIME SRX2 BED AT LOWEST SETTING CALL LIGHT WITHIN REACH WILL CONTINUE TO MONITOR
[2016-12-08 08:48] VITALS: BP 142/65
[2016-12-08 10:31] LABS: MAGNESIUM - SERUM 1.7 mg/dL (1.8-2.4); PHOSPHOROUS 2.2 mg/dL (2.5-4.9)
[2016-12-08 12:33] VITALS: BP 107/64
[2016-12-08 16:58] VITALS: BP 103/53
[2016-12-08 18:18] LABS: MAGNESIUM - SERUM 1.8 mg/dL (1.8-2.4); PHOSPHOROUS 1.8 mg/dL (2.5-4.9)
[2016-12-08 20:00] VITALS: BP 99/49
--- NOTE | 2016-12-08 22:42 | NUR ---
REC'D SITTING UP IN BED. ALERT AND ORIENTED X4. DENIED PAIN AT THIS TIME. DENIED FURTHER NEEDS AT THIS TIME. POTASSIUM WAS 3.0 AFTER REDRAW, REFUSED THE RIDERS, CALLED DR. IQBAL AND GOT THE OK FROM HIM TO GIVE THE PO LIQUID. PHOS WAS ALSO 1.8 WILL CONT TO GIVE NEEDED. WILL CONT TO MONITOR. INSTRUCTED TO CALL IF NEEDED ANYTHING, VERBALIZED UNDERSTANDING. IS TO BE NPO AFTER MIDNIGHT FOR A PORT PLACEMENT IN AM. CONSENTS ARE SIGNED AND IN CHART. BED LOW, LOCKED, CALL LIGHT IN REACH.
[2016-12-09] VITALS: BP 102/50
--- NOTE | 2016-12-09 | NUR ---
PATIENT RESTING QUIETLY WITH EYES CLOSED. HOB 40 DEGREES. NO SIGNS OF DISTRESS NOTED. BED IN LOWEST POSITION, CALL LIGHT IN REACH. BED RIALS UP X'S 2.
[2016-12-09 05:40] LABS: BASOPHILS 0.1 % (0-2); EOSINOPHILS 2.2 % (0-7); HEMOGLOBIN 9.3 g/dL (12-16); IMMATURE GRANULOCYTES 0.4 % (0-5); LYMPHOCYTES 15.8 % (15-50); MCH 20.9 pg (26.0-34.0); MCV 67.6 fL (80.0-100.0); NEUTROPHILS 65.5 % (40-80); PLATELET COUNT 223 10x3/uL (130-400); RBC 4.44 10x6/uL (4.00-5.40); RDW 27.7 % (11.5-14.5); WBC 6.8 10x3/uL (4.8-10.8)
[2016-12-09 05:56] LABS: ALBUMIN 1.4 g/dL (3.4-5.0); ALKALINE PHOSPHATASE 46 U/L (46-116); ALT (SGPT) 18 U/L (10-68); BILIRUBIN - TOTAL 0.18 mg/dL (0.2-1.3); CALC OSMOLALITY 278 mosm/kg (275-300); CALCIUM 7.3 mg/dL (8.5-10.1); CARBON DIOXIDE 27.9 mmol/L (21.0-32.0); CHLORIDE - SERUM 106 mmol/L (98-107); CREATININE - SERUM 0.4 mg/dL (0.6-1.3); MAGNESIUM - SERUM 1.7 mg/dL (1.8-2.4); POTASSIUM - SERUM 3.3 mmol/L (3.5-5.1); PROTEIN - SERUM 4.4 g/dL (6.4-8.2); SODIUM 140 mmol/L (136-145); UREA NITROGEN 6 mg/dL (7-18); eGFR NON AFRICAN AMERICAN > 90 mL/min (90-120)
[2016-12-09 06:02] LABS: GLUCOSE 137 mg/dL (74-106)
--- NOTE | 2016-12-09 07:30 | NUR ---
RECIEVED PT DURING WALKING ROUNDS, PT RESTING IN BED WITH NO COMPLAINTS OF PAIN OR DISCOMFORT AT THIS TIME. ASSESSMENT DONE PER FLOWSHEET. BED IN LOW POSITION AND CALL LIGHT WITHIN REACH. WILL CONTINUE TO MONITOR.
[2016-12-09 09:17] LABS: FOLATE (FOLIC ACID) - SERUM 15.8 ng/mL (>3.0)
[2016-12-09 09:39] VITALS: BP 123/70
--- NOTE | 2016-12-09 10:05 | NUR ---
IV SITE IN LEFT FOREARM INFILTRATED, REDENED, HARD TO TOUCH, PAINFUL TO PATIENT. IV RESITED IN RIGHT HAND BY ANESTHISIA AFTER A FEW ATTEMPTS, BLOOD RETURN OBTAINED FLUSH AND PATENT.. IV IN LEFT ARM REMOVED INTACT, PRESSRE APPLIED.
--- NOTE | 2016-12-09 10:58 | NUR ---
ERIC REMOCED INTACT PER VERBAL ORDER.
[2016-12-09 11:24] VITALS: BP 122/59
--- NOTE | 2016-12-09 11:25 | NUR ---
PT RETURNED FROM SURGERY AT THIS TIME, PORT IN USE. POST-OP STABILITY VITALS STARTED AT THIS TIME, BED IN LOW POSITION AND CALL LIGHT WITHIN REACH. WILL CONTINUE TO MONITOR.
--- NOTE | 2016-12-09 11:50 | NUR ---
LABS REDRAWN AT THIS TIME PER ORDER FOR ELECTROLYTE PROTOCOL. PT STATED SHE WOULD LIKE TO HAVE ORAL REPLACEMENT MEDICATION, SPOKE WITH BARBIE RESENDIZ AND WAS TOLD PO COULD BE GIVEN AFTER THE COMPLETION OF CT SCAN. WILL FOLLOW E.P. WHEN PT IS ABLE TO TAKE ORAL MEDICATION. PT RESTING IN BED. WILL CONTINUE TO MONITOR.
[2016-12-09 12:41] LABS: MAGNESIUM - SERUM 1.6 mg/dL (1.8-2.4); PHOSPHOROUS 2.3 mg/dL (2.5-4.9); POTASSIUM - SERUM 3.6 mmol/L (3.5-5.1)
--- NOTE | 2016-12-09 13:29 | NUR ---
CM REASSESSMENT NOTE: PATIENT SIGNED THE [facility] FORM FOR [facility] (1ST CHOICE) AND [facility] (2ND CHOICE). SENDING REFERRAL TO [facility] TODAY.
--- NOTE | 2016-12-09 19:00 | NUR ---
REPORT RECEIVED AND CARE OF PT ASSUMED. PT LYING IN SEMI ELLER'S POSITION. LEFT IP PATENT WITH NS W/ 40 KCL INFUSING AT 125 ML / HR. BEREAVEMENT COORDINATOR / DILAUDID IN USE FOR PAIN CONTROL. TELEMETRY IN USE AND READING SR AT THIS ASSESSMENT. DRESSINGS ON ABDOMEN CLEAN AND DRY. ROBB DRAIN COMPRESSED. WILL MONITOR CLOSELY FOR NEEDS.
--- NOTE | 2016-12-09 19:04 | NUR ---
OT NOTE: PT COMPLETED SUPINE TO SIT, WEIGHT SHIFT, AND ROLLING WITH SBA. PT COMPLETED DYNAMIC SITTING BALANCE WITH SBA. PT COMPLETED BUE GROSS MOTOR AND FINE MOTOR AXS FOR INCREASED I WITH ADLS. THANK YOU, ASHLYN CASTILLO/Estelle
[2016-12-09 20:00] VITALS: BP 101/59
--- NOTE | 2016-12-09 21:10 | NUR ---
HS MEDICATIONS GIVEN. WILL CONTINUE TO MONITOR FOR NEEDS.
[2016-12-10] VITALS: BP 110/61
--- NOTE | 2016-12-10 00:30 | NUR ---
ASSISTED PT UP TO USE RESTROOM, WITH 2 PERSON ASSIST.
[2016-12-10 04:00] VITALS: BP 122/73
[2016-12-10 05:30] LABS: BASOPHILS 0 % (0-2); EOSINOPHILS 0.8 % (0-7); HEMATOCRIT 27.5 % (36.0-48.0); HEMOGLOBIN 8.5 g/dL (12-16); IMMATURE GRANULOCYTES 0.5 % (0-5); LYMPHOCYTES 14.9 % (15-50); MCH 21.1 pg (26.0-34.0); MCHC 30.9 g/dL (31.0-37.0); MCV 68.2 fL (80.0-100.0); MONOCYTES 14.1 % (2-11); NEUTROPHILS 69.7 % (40-80); PLATELET COUNT 210 10x3/uL (130-400); RBC 4.03 10x6/uL (4.00-5.40); WBC 7.5 10x3/uL (4.8-10.8)
[2016-12-10 05:59] LABS: ALBUMIN 1.4 g/dL (3.4-5.0); ALKALINE PHOSPHATASE 49 U/L (46-116); ALT (SGPT) 22 U/L (10-68); CALC OSMOLALITY 280 mosm/kg (275-300); CALCIUM 7.8 mg/dL (8.5-10.1); CARBON DIOXIDE 26.6 mmol/L (21.0-32.0); CHLORIDE - SERUM 110 mmol/L (98-107); CREATININE - SERUM 0.4 mg/dL (0.6-1.3); GLUCOSE 109 mg/dL (74-106); MAGNESIUM - SERUM 1.6 mg/dL (1.8-2.4); PHOSPHOROUS 2.2 mg/dL (2.5-4.9); PROTEIN - SERUM 4.4 g/dL (6.4-8.2); SODIUM 142 mmol/L (136-145); UREA NITROGEN 5 mg/dL (7-18); eGFR NON AFRICAN AMERICAN > 90 mL/min (90-120)
[2016-12-10 06:11] LABS: POTASSIUM - SERUM 4.4 mmol/L (3.5-5.1)
[2016-12-10 08:08] VITALS: BP 121/52
--- NOTE | 2016-12-10 08:42 | CN ---
PATIENT NAME:MADIHA DIXON ROLFE MEDICAL RECORD: [id number] : 43 LOCATION:[id number] ADMIT DATE: 12/01/16 ACCOUNT: [id number] CONSULTING PHYSICIAN: WILNER IQBAL MD REFERRING PHYSICIAN: RAZA VANCE M.D. DATE OF CONSULTATION: 11/30/2016 CHIEF COMPLAINT: Bowel obstruction. HISTORY OF PRESENT ILLNESS: The patient either has a bowel obstruction or an ileus. I would favor an ileus. Upon examination, there is no inguinal hernia. I detect no femoral hernia. She has no history of cancer. She has not had an abdominal operation, so I think the significant adhesions are unlikely. I have reviewed her small-bowel follow-through images. I have reviewed the x-ray report. I have reviewed the KUB images from this morning. The entire examination was performed with the presence of a female nurse. Her abdomen is distended. She has not had a bowel movement for 2 weeks. Interestingly, she is not nauseated. Really not having any abdominal pain. Nothing aggravates. Nothing alleviates. I have personally discussed her case with the Emergency Room physician. This is a consultation note addendum. For the typed portion of the consult note, please see the chart. This would include the past medical and surgical history, allergies, family history as well as social history. REVIEW OF SYSTEMS: No chest pain, no shortness of breath, no headache, no rash. The review of systems is negative other than as is described above. PHYSICAL EXAMINATION: GENERAL: The patient does not appear acutely ill. She does not appear chronically ill. HEAD: External ears appear normal. EYES: Extraocular movements are intact. NECK: Trachea is midline. CHEST: No intercostal retractions. PULMONARY: Nonlabored, no stridor. ABDOMEN: Distended. Doughy. Not tympanitic. EXTREMITIES: No peripheral cyanosis. INTEGUMENT: No rash, no ulcerations. PSYCHIATRIC: Normal affect. NEUROLOGIC: Nonfocal, no lethargy. The patient answers questions appropriately, moves all extremities well. BACK: No thoracic kyphosis. LYMPHATICS: No lymphangitic streaking of the exposed extremities. IMPRESSION: Small bowel obstruction versus ileus. PLAN: Serial abdominal examinations. N.p.o. I think we can hold off on nasogastric suction for now. TRANSINT:[id number] Voice Confirmation ID: [id number] DOCUMENT ID: [id number] CONSULT REPORT [id number] MADIHA DIXON ROBERT MD at 0842 CC: [id number] DICTATION DATE: 11/30/161746 SINGING MESSENGER: 11/30/16 2344 ADM IN [place] [id number] [place] [id number]
--- NOTE | 2016-12-10 08:42 | OP ---
PATIENT NAME: MADIHA DIXON [place] MEDICAL RECORD: [id number] :44 LOCATION:D.[facility] ADMISSION DATE:12/01/16 SURGEON: WILNER IQBAL MD DATE OF OPERATION: 12/03/2016 PREOPERATIVE DIAGNOSIS: Obstructing colonic cancer. POSTOPERATIVE DIAGNOSES: Obstructing transverse colon malignancy with direct invasion into the retroperitoneum and also direct invasion into the acute margin of the liver. PROCEDURE: Hand-assisted right hemicolectomy. SURGEON: Wilner Iqbal MD CONTACT CENTER REPRESENTATIVE: None. BLOOD LOSS: Less than 100 cc. ANESTHESIA: General. DRAINS: Times 1 (10-Slovenian round Ottoniel). The patient was found to have an obstructing mass. I saw the patient preoperatively. We discussed the risks, possible complications, alternatives to hand-assisted laparoscopic colectomy, possible open procedure. I specifically discussed the risk of colostomy. OPERATIVE COURSE: The patient was conveyed to the operating room electively on 12/03/2016. General anesthesia was induced by the anesthesia staff. The abdomen was sterilely prepped and draped. A transverse incision was accomplished in the right side of the abdomen, group home between the anterior superior iliac spine and the right costal margin. Sharp dissection was carried down through the skin and subcutaneous tissues. I incised the external oblique aponeurosis along the direction of its fibers. I bluntly dissected down through the internal oblique and transversus abdominis muscles. I entered the peritoneal cavity sharply. An Bill retractor was placed. On top of the Bill retractor, the Gelport was placed. A 12-mm trocar was placed through the Gelport. We insufflated the abdomen. Due to the very dilated large and small bowel, really there was not much room to work. I was able to make an incision and I advanced a 5-mm trocar at the umbilicus and another 5-mm trocar in the lower midline of the abdomen. However, as far as manipulating things internally, there really was not enough room to see any significant structures. I then took the top off the Gelport and desufflated the abdomen. I incised along the right white line of Toldt. I was able to mobilize some of the colon. A pursestring suture of 3-0 Vicryl was applied at the cecum. A small colotomy was accomplished. Through the colotomy, I advanced the pool sucker. I suctioned out the right side of the colon. I then removed the pool sucker and cinched down on the 0 Vicryl and tied. I then stapled across this colotomy with a single firing of the TA-30 stapler. I then exteriorized most of the small bowel. It is going to be necessary to decompress the small bowel as well if we are going to have the chance of getting this patient closed at the end of the operation. A pursestring suture of 3-0 Vicryl was applied at the proximal jejunum. A small enterotomy was accomplished within this pursestring suture. I OPERATIVE REPORT [id number] ZACKMADIHA SANCHEZAIR advanced a pool sucker. I then milked the antral contents in a retrograde fashion and we suctioned out a total of 3 liters of succus and fecal material during this process. I then removed the pool sucker. I tied down on the pursestring suture. I then stapled across the closure with a TA-30 stapler and then excised the tissue that had been stapled off. I irrigated extensively, irrigating the small bowel, as there had been some particulate Gastrografin material that spilled on to the small bowel. This undoubtedly is going to cause a little bit of peritonitis and for that reason, I am going to keep the patient on intravenous antibiotics postoperatively. I returned the small bowel to the peritoneal cavity. I then placed the Gelport back on to the Bill retractor. We had insufflated the abdomen. Utilizing a 5-mm camera, I was able to inspect the abdomen. I noted no liver lesions. Another 5-mm trocar was placed in the epigastrium. I put my hand in the abdomen and begin some blunt dissection up along the hepatic flexure. It was the transverse colon just proximal to the hepatic flexure where I felt the mass. It felt fixed to underlying structures. I was able to free up some of the retroperitoneal attachments to this mass. The mass had directly invaded the acute margin of the liver, so utilizing the Harmonic scalpel, I excised a small portion of the acute margin of the liver. I then took the top off of the Gelport. I started to exteriorize the colon. The ileum was exteriorized, a window was created in the mesentery of the ileum. I then stapled across the ileum with a KARINA-75 stapler. I then began to transect the mesentery of the right colon. I was able to mobilize the right colon some more and sweep down the right ureter. I took down the mesentery with the Harmonic scalpel. I was able to exteriorize part of the transverse colon as well, the distal to the area that was fixed where the mass was present. A window was created in the mesocolon. I stapled across the colon at this site with a KARINA-75 stapler. I began to divide the mesentery of the transverse colon with the Harmonic scalpel. I was able to then deliver up into the wound this fixed mass. It was fixed in the underlying duodenum. I was able to dissect the duodenum off of the mass, so the mass did not invade the duodenum. I partially kocherized the duodenum. I swept down the duodenum, as well as the inferior vena cava. I was able to then deliver the mass up through the Bill retractor. I divided the rest of the interposed mesentery. There were a number of firm lymph nodes that I felt. I then removed the specimen and I opened it up on the back table. I regloved and gown. I felt the liver and I could not feel any metastatic malignancy in the portion of the liver that I could feel, which was the right lobe and the medial aspect of the left lobe. There was a very little bleeding. The ileum and the transverse colon were brought into apposition side by side. I felt the transverse colon looked a little dusky and for this reason, I decided to take some more of the transverse colon. A window was created in the mesentery of the transverse colon. I stapled across the transverse colon with a KARINA-75 stapler. I then took down the mesentery with the Harmonic scalpel. The transverse colon and the ileum were placed in the apposition side by side and sutured in place with several 3-0 Vicryl sutures. A small enterotomy and small colotomy were accomplished. I advanced anvils of the KARINA-75 stapler. I then fired. The resulting intracolonic defect was then closed with a single firing of a TA 60 stapler. This was returned to the peritoneal cavity. I irrigated copiously. I advanced a 10-Slovenian round Ottoniel drain through the lower midline drain. The drain was sutured to skin with a nylon suture. OPERATIVE REPORT [id number] MADIHA DIXON In the right side of the abdomen, I reperitonealized with a running #1 Vicryl. The transverse abdominis and internal oblique muscles were approximated with a running #1 Vicryl. The external oblique aponeurosis was closed with a running #1 Vicryl. The deep adipose tissue was closed with interrupted 3-0 Vicryls. Subcutaneous adipose tissue was closed with interrupted 3-0 Vicryls. The skin was closed with a running intracuticular 3-0 Vicryl. The 5-mm trocars were removed. The trocar site at the umbilicus was closed with interrupted 4-0 Vicryl Rapide sutures. The epigastric trocar site was closed with interrupted intracuticular 3-0 Vicryl. Sterile dressings were applied. The patient was then extubated and conveyed to the post-anesthesia care unit where she was in stable condition. TRANSINT:[id number] Voice Confirmation ID: [id number] DOCUMENT ID: [id number] WILNER IQBAL MD at 0842 CC: SANYA BAILEY DO, RAZA VANCE M.D. and DIAMOND RYAN DO [id number] DICTATION DATE: 12/03/16 183 SALES REPRESENTATIVE AIRCRAFT: 12/03/16 2339 ADM IN [facility] [address] [place] [address]
--- NOTE | 2016-12-10 08:42 | PN ---
PATIENT:MADIHA DIXON MEDICAL RECORD: [id number] LOCATION:D.[facility] ADMISSION DATE: 12/01/16 PROGRESS NOTE DATE OF SERVICE: 12/02/2016 CHIEF COMPLAINT: No bowel movement. The patient has had no bowel function. Her abdomen is diffusely mildly tender. It is quite distended. It is not tympanitic. She is to undergo colonoscopy today. I am anxious to hear the results of the colonoscopy as I fear that she may have a colonic obstruction. Palpation aggravates. Nothing alleviates. It is a crampy pain. It is nonradiating. If nothing is found of significance at the time of colonoscopy, I am going to plan for laparoscopic adhesiolysis, possible exploratory laparotomy tomorrow. I will go ahead and put her on the schedule for this to hold her place on the OR schedule. REVIEW OF SYSTEMS: Positive for nausea. No fever, no chills, no chest pain. Positive for some shortness of breath, positive for dyspnea on exertion. Her review of systems is negative other than as is described above. For the past medical and surgical history, current medications, social history and family history, please see the chart. PHYSICAL EXAMINATION: GENERAL: The patient appears acutely ill. She does not appear chronically ill. VITAL SIGNS: Reviewed. The entire physical examination was performed with the presence of a female nurse. EARS: External ears appear normal. EYES: Extraocular movements are intact. NECK: Trachea is midline. CHEST: No intercostal retractions. PULMONARY: Decreased inspiratory volumes. She is slightly tachypneic. ABDOMEN: Diffusely tender. Distended. EXTREMITIES: No peripheral cyanosis. INTEGUMENT: No rash, no ulcerations. PSYCHIATRIC: Normal affect. NEUROLOGIC: Nonfocal, no lethargy. The patient answers questions appropriately, moves all extremities well. BACK: Mild thoracic kyphosis. LYMPHATIC: No lymphangitic streaking of the exposed extremities. IMPRESSION: Small bowel obstruction versus large bowel obstruction. PLAN: Colonoscopy today. Possible operation as described above tomorrow. TRANSINT:[id number] Voice Confirmation ID: [id number] DOCUMENT ID: [id number] PROGRESS NOTE [id number] DIXONGERMAN DIASWILNER MICHELE MD at 0842 CC: [id number] DICTATION DATE: 12/02/16 1629 STORE SHOPPER: 12/03/16 7744 ADM IN [facility] [address] [id number]
--- NOTE | 2016-12-10 08:42 | OP ---
PATIENT NAME: MADIHA DIXON [place] MEDICAL RECORD: [id number] :44 LOCATION:D.MS [facility]26 ADMISSION DATE:12/01/16 SURGEON: WILNER IQBAL MD DATE OF OPERATION: 12/09/2016 PREOPERATIVE DIAGNOSES: 1. Metastatic colon cancer. 2. In need of IV access for chemotherapy. POSTOPERATIVE DIAGNOSES: 1. Metastatic colon cancer. 2. In need of IV access for chemotherapy. PROCEDURES: 1. Insertion of a left infraclavicular PowerPort under fluoroscopic guidance. 2. Immediate surgeon interpretation of the fluoroscopic images. SURGEON: Wilner Iqbal MD CODER: None. BLOOD LOSS: Minimal. ANESTHESIA: General. COMPLICATIONS: None. The risks, possible complications, and alternatives to the procedure were explained to the patient. She elects to proceed. OPERATIVE COURSE: The patient was conveyed to the operating room electively on 12/09/2016. General anesthesia was induced by the anesthesia staff. The left neck and left chest were sterilely prepped and draped. A transverse incision was accomplished inferior to the left clavicle. Sharp dissection was carried down to the level of the pectoralis fascia. A subcutaneous pocket was created in a caudad direction. I then excised some of the adipose tissue from between the skin and the port pocket. I dissected in the deltopectoral groove. There was a bifurcated cephalic vein and neither one of the bifurcations had a caliber that was significant enough to accept the PowerPort catheter. I then chose a direct stick of the subclavian vein. The patient was positioned in the Trendelenburg position. The subclavian vein was accessed easily through the pocket in an antegrade fashion. Under fluoroscopy, a guidewire passed easily. A dilator sheath was then advanced. The dilator and wire were removed. Through the sheath, the PowerPort catheter was advanced. It was advanced to the cavoatrial junction. It was shortened. The locking device was firmly engaged on to the PowerPort. The PowerPort was then sutured to the underlying pectoralis fascia with 3-point fixation utilizing 3-0 Prolene sutures. I irrigated in the PowerPort pocket. Final fluoroscopic images were obtained. No radiologist was present for this procedure. The surgeon interpretation of the fluoroscopic images is dictated within the body of this operative note. I closed the port pocket with multiple interrupted 3-0 Vicryl sutures for the deep dermis as well as a running intracuticular 4-0 Vicryl for the skin. I then accessed the port. It accessed easily. It flushed easily and aspirated dark, nonpulsatile blood. OPERATIVE REPORT [id number] ZACKMADIHA GORDONCLAIR I left the port access. A sterile dressing was applied. A stat portable chest x-ray is pending. TRANSINT:[id number] Voice Confirmation ID: [id number] DOCUMENT ID: [id number] WILNER IQBAL MD at 0842 CC: RAZA VANCE M.D. and MAYTE FITZPATRICK MD [id number] DICTATION DATE: 12/09/16 1029 GLOVE PAIRER: 12/09/16 1138 ADM IN [id number] [place] [address]
--- NOTE | 2016-12-10 08:42 | PN ---
PATIENT:MADIHA DIXON MEDICAL RECORD: [id number] LOCATION:D.[facility] ADMISSION DATE: 12/01/16 PROGRESS NOTE DATE OF SERVICE: 12/01/2016 PREOPERATIVE DIAGNOSIS: No bowel movement. I have reviewed her small bowel follow through images. I have reviewed her Gastrografin enema images. I have reviewed the Gastrografin enema report. Her abdomen is still quite distended. The physical examination is limited today as the patient just had an enema and is retaining the enema. I told her that if she does not have a return of bowel function by Tuesday, we may be forced to operate and I would try to start that laparoscopically and if I am unable to perform it laparoscopically, then we would continue with an exploratory laparotomy. Palpation aggravates. Nothing alleviates. Her abdomen is more distended than it was yesterday. Past medical and surgical history, current medications, allergies, social history, as well as family history, please see the typed portion of the chart. REVIEW OF SYSTEMS: Positive for nausea. No bowel movement, positive for some shortness of breath. Otherwise, review of systems is negative other than as is described above. PHYSICAL EXAMINATION: GENERAL: The patient does appear acutely ill. She does not appear chronically ill. VITAL SIGNS: Reviewed. The entire physical examination was performed with the presence of a female nurse. EARS: External ears normal. EYES: Extraocular movements are intact. NECK: Trachea is midline. CHEST: No intercostal retractions, shallow breathing. ABDOMEN: Distended diffusely. GENITOURINARY: No incarcerated inguinal hernias. EXTREMITIES: No peripheral cyanosis. INTEGUMENT: No rash and no ulcerations. PSYCHIATRIC: Anxious affect. NEUROLOGIC: Nonfocal, no lethargy. The patient answers questions appropriately, moves all extremities well. BACK: No thoracic kyphosis. LYMPHATIC: No lymphangitic streaking of the exposed extremities. IMPRESSION: Probable small bowel versus large bowel obstruction. PLAN: It is my understanding that a colonoscopy is planned. I would agree with this. If she does not improve by Tuesday, my plan would be laparoscopic adhesiolysis versus exploratory laparotomy. TRANSINT:[id number] Voice Confirmation ID: [id number] DOCUMENT ID: [id number] PROGRESS NOTE [id number] DIXONMADIHA DIAS WILNER GRIDER MD at 0842 CC: [id number] DICTATION DATE: 12/01/16 194 MEDICAL ASSISTANT DERMATOLOGY: 12/02/16 [address] [facility] [address] [id number]
[2016-12-10 12:40] VITALS: BP 130/61
[2016-12-10 16:00] VITALS: BP 117/59
--- NOTE | 2016-12-10 19:15 | NUR ---
ROUNDED ON ROOM. PT SITTING UP IN BED. SCD'S IN PLACE. CALL LIGHT AT SIDE. IV INFUSING TO LEFT IP. ROBB COMPRESSED WITH LIGHT RED DRAINAGE. ALL INCISIONS WITH NO REDNESS, SWELLING, OR PURULANT DISCHARGE. TELE IN PLACE. REPORTS NO NEEDS.
[2016-12-10 20:00] VITALS: BP 125/62
--- NOTE | 2016-12-10 21:00 | NUR ---
PT SITTING UP IN BED. ASSISSTED TO RESTROOM. IV INFUSING. REPORTS NO OTHER NEEDS.
[2016-12-11 00:02] VITALS: BP 128/65
--- NOTE | 2016-12-11 01:39 | NUR ---
PT LYING IN BED WITH EYES CLOSED. RESP EVEN AND UNLABORED. CALL LIGHT AT SIDE. BEDRAILS X2. IV INFUSING.
[2016-12-11 04:00] VITALS: BP 127/67
--- NOTE | 2016-12-11 07:42 | NUR ---
AWAKE AND ALERT. ORIENTED X3. NO C/O AT THIS TIME. LUNGS ARE CLEAR BILATERALLY, NO COUGH NOTED. SKIN IS INTACT WITHOUT REDNESS EXCEPT 3 SMALL INCISION AREAS TO ABDOMEN WHICH HAVE DRY INTACT DRESSINGS IN PLACE. LEFT PORT PATENT WITHOOUT REDNESS AT ISNERTION SITE. DENIES NEEDS. FAMILY AT BEDSIDE.
[2016-12-11 08:00] VITALS: BP 132/66
--- NOTE | 2016-12-11 10:15 | NUR ---
ATE MOST OF BREAKFAST. UP IN HALLWAY AT THIS TIME WITH PT USING RW.
--- NOTE | 2016-12-11 12:30 | NUR ---
ATE MOST OF LUNCH TRAY. NO C/O AT THIS TIME. DENIES NEEDS.
[2016-12-11 12:36] VITALS: BP 140/60
--- NOTE | 2016-12-11 14:54 | NUR ---
UP TO BR WITH ONE PERSON ASSIST. VOIDED WITHOUT DIFFICULTY. SKIN CARE PER SELF.
[2016-12-11 16:09] VITALS: BP 130/68
--- NOTE | 2016-12-11 16:38 | NUR ---
AMBULATED 250 FEET WITH NURSING USING RW. DID WELL. NO C/O PAIN WITH INCREASED ACTIVITY.
--- NOTE | 2016-12-11 17:00 | NUR ---
AMBULATED 250 FEET WITH NURSE. GAVE SELF SPIT BATH AT BEDSIDE. DENIES NEEDS.
--- NOTE | 2016-12-11 18:25 | NUR ---
EMPTIED 30CC SEROUS DRAINAGE FROM ROBB.
--- NOTE | 2016-12-11 18:25 | NUR ---
ATE ABOUT 25% OF SUPPER. NOT VERY HUNGRY. DENIES NEEDS. NO CHANGES NOTED.
--- NOTE | 2016-12-11 19:15 | NUR ---
RECIEVED PT FROM DAY NURSE. PT SITTING UP IN BED. CALL LIGHT AT SIDE. REPORTS NO NEEDS. IV INFUSING TO LEFT IP. SCD'S IN PLACE.
[2016-12-11 20:00] VITALS: BP 160/75
--- NOTE | 2016-12-11 23:35 | NUR ---
ASSISSTED PT TO RESTROOM. REPORTS NO OTHER NEEDS AT THIS TIME.
[2016-12-12] VITALS: BP 139/70
--- NOTE | 2016-12-12 03:37 | NUR ---
PT LYING IN BED WITH EYES CLOSED. RESP EVEN AND UNLABORED. CALL LIGHT AT SIDE. IV INFUSING TO LEFT IP.
[2016-12-12 04:00] VITALS: BP 151/73
--- NOTE | 2016-12-12 04:00 | NUR ---
RN NOTE: PT RESTING QUIETLY AT THIS TIME WITH UNLABORED BREATHING. SIDE RAILS UP X2 FOR SAFETY.
[2016-12-12 05:22] LABS: BASOPHILS 0.4 % (0-2); EOSINOPHILS 5.2 % (0-7); HEMATOCRIT 29.2 % (36.0-48.0); HEMOGLOBIN 8.8 g/dL (12-16); IMMATURE GRANULOCYTES 0.9 % (0-5); LYMPHOCYTES 23.4 % (15-50); MCHC 30.1 g/dL (31.0-37.0); MCV 69.7 fL (80.0-100.0); MEAN PLATELET VOLUME 9.4 fL (7.4-10.4); MONOCYTES 16.1 % (2-11); RBC 4.19 10x6/uL (4.00-5.40)
[2016-12-12 05:23] LABS: PLATELET COUNT 268 10x3/uL (130-400); WBC 5.3 10x3/uL (4.8-10.8)
[2016-12-12 05:39] LABS: CALC OSMOLALITY 275 mosm/kg (275-300); CALCIUM 8.1 mg/dL (8.5-10.1); CARBON DIOXIDE 27.4 mmol/L (21.0-32.0); CHLORIDE - SERUM 107 mmol/L (98-107); CREATININE - SERUM 0.4 mg/dL (0.6-1.3); GLUCOSE 93 mg/dL (74-106); POTASSIUM - SERUM 4.3 mmol/L (3.5-5.1); SODIUM 140 mmol/L (136-145); UREA NITROGEN 4 mg/dL (7-18); eGFR NON AFRICAN AMERICAN > 90 mL/min (90-120)
[2016-12-12 06:41] LABS: MAGNESIUM - SERUM 1.9 mg/dL (1.8-2.4); PHOSPHOROUS 3.7 mg/dL (2.5-4.9)
--- NOTE | 2016-12-12 07:55 | NUR ---
REPORT RECEIVED FROM FRONT OFFICE SPECIALIST NURSE. CALL LIGHT IN REACH.
[2016-12-12 08:15] VITALS: BP 142/73
--- NOTE | 2016-12-12 09:04 | NUR ---
ASSESSMENT COMPLETED. SCDs TO BLE. CALL LIGHT IN REACH. IN ROOM. WILL CONTINUE WITH PLAN OF CARE.
--- NOTE | 2016-12-12 11:33 | NUR ---
AM MEDS ADMINISTERED PER ORDER. IV TUBING CHANGED PER HOSPITAL PROTOCOL. SITTING IN CHAIR PER PT, WHOM SIGNED PATIENT OFF TO NURSING FOR AMBULATION.
[2016-12-12 13:04] VITALS: BP 116/67
--- NOTE | 2016-12-12 13:15 | NUR ---
AMBULATED IN HALLWAY. TOLERATED WELL. CALL LIGHT IN REACH.
--- NOTE | 2016-12-12 15:44 | NUR ---
AT BEDSIDE. NO NEEDS OR PAIN VOICED. CALL LIGHT IN REACH.
[2016-12-12 15:58] VITALS: BP 123/57
--- NOTE | 2016-12-12 16:50 | NUR ---
DENIES NEEDS AT THIS TIME. CALL LIGHT IN REACH
--- NOTE | 2016-12-12 18:28 | NUR ---
NO CHANGES IN INITIAL ASSESSMENT. CALL LIGHT IN REACH. SCDs TO BLE. CALL LIGHT IN REACH. WILL CONTINUE WITH PLAN OF CARE.
[2016-12-12 19:00] VITALS: BP 97/57
--- NOTE | 2016-12-12 19:15 | NUR ---
RECEIVED CARE FROM DAY NURSE. PT SITTING UP IN BED. REPORTS NO NEEDS. CALL LIGHT AT SIDE. IV INFUSING TO LEFT PORT. SCD'S IN PLACE.
[2016-12-13] VITALS: BP 131/66
--- NOTE | 2016-12-13 02:04 | NUR ---
PT LYING IN BED WITH EYES CLOSED. RESP EVEN AND UNLABORED. CALL LIGHT AT SIDE. SCD'S IN PLACE. IV INFUSING TO LEFT PORT.
--- NOTE | 2016-12-13 02:27 | NUR ---
RN NOTE: PT RESTING IN SEMI ELLER'S POSITION WITH EYES CLOSED AND UNLABORED BREATHING. LEFT IP ACCESSED WITH NS W/ 40 KCL INFUSING AT 125 ML / HR. SKEINS YARN EXAMINER / DILAUDID IN UE FOR PAIN CONTROL. WILL CONTINUE TO MONITOR FOR NEEDS.
[2016-12-13 04:00] VITALS: BP 129/62
[2016-12-13 06:02] LABS: BASOPHILS 0.6 % (0-2); EOSINOPHILS 4.9 % (0-7); HEMATOCRIT 27.8 % (36.0-48.0); HEMOGLOBIN 8.3 g/dL (12-16); IMMATURE GRANULOCYTES 0.6 % (0-5); LYMPHOCYTES 18.4 % (15-50); MCH 20.9 pg (26.0-34.0); MCHC 29.9 g/dL (31.0-37.0); MEAN PLATELET VOLUME 9.4 fL (7.4-10.4); MONOCYTES 11.9 % (2-11); NEUTROPHILS 63.6 % (40-80); PLATELET COUNT 279 10x3/uL (130-400); RBC 3.97 10x6/uL (4.00-5.40); RDW 29.1 % (11.5-14.5); WBC 6.3 10x3/uL (4.8-10.8)
[2016-12-13 06:07] LABS: CALC OSMOLALITY 276 mosm/kg (275-300); CARBON DIOXIDE 25.5 mmol/L (21.0-32.0); CHLORIDE - SERUM 109 mmol/L (98-107); CREATININE - SERUM 0.6 mg/dL (0.6-1.3); GLUCOSE 82 mg/dL (74-106); POTASSIUM - SERUM 4.4 mmol/L (3.5-5.1); SODIUM 141 mmol/L (136-145); UREA NITROGEN 4 mg/dL (7-18); eGFR NON AFRICAN AMERICAN > 90 mL/min (90-120)
--- NOTE | 2016-12-13 07:30 | NUR ---
RECIEVED PT DURING WALKING ROUNDS. PT RESTING IN BED WITH NO COMPLAINTS OF PAIN OR DISCOMFORT AT THIS TIME. ASSISTED PT TO CHAIR FOR BREAKFAST. ASSESSMENT DONE PER FLOWSHEET. BED IN LOW POSITION AND CALL LIGHT WITHIN REACH. WILL CONTINUE TO MONITOR.
[2016-12-13 09:26] VITALS: BP 155/69
--- NOTE | 2016-12-13 11:33 | NUR ---
CM REASSESSMENT NOTE: PATIENT IS WALKING 500-1000 FT PER PATIENT AND PT. [facility] STATED SHE WOULD PROBABLY NOT BE ACCEPTED DUE TO HER WALKING THAT FAR. CM VISITED WITH PATIENT AND SHE CHOSE [facility] AND SIGNED THE [facility]IS FORM AND WILL HAVE MED. MGT. AND PT ON DISCHARGE. PATIENT WILL D/C TODAY / SPOUSE DRIVING HER. CM ORDERED A WALKER THROUGH [facility] AND IT WILL BE DELIVERED TO HER ROOM BEFORE D/C. IMM SERVED
--- NOTE | 2016-12-13 11:49 | NUR ---
CM REASSESSMENT NOTE: PATIENT STATED THEY WILL STOP AT [facility] TODAY TO GET A WALKER. HCM IS NOT DELIVERING WALKER
--- NOTE | 2016-12-13 11:55 | NUR ---
SPOKE WITH DR. FITZPATRICK AT THIS TIME ABOUT IRON INFUSION THAT SHE HAD SPOKEN WITH THE PT ABOUT. RECIEVED ORDER TO ADMINISTER IRON INFUSION. PT WILL DISCHARGE AFTER MEDICATION ADMINISTRATION.
[2016-12-13 12:47] VITALS: BP 154/79
--- NOTE | 2016-12-13 17:25 | NUR ---
DEACCESSED PORT AT THIS TIME, SALINE AND HEPARIN FLUSHED. PT GIVEN DISCHARGE INSTRUCTIONS, DISCHARGED VIA WHEELCHAIT TO HOME WITH A FAMILY MEMBER.
== END 2016-12-13 17:27 | disposition home health service (06) | DRG 330 ==
LOC: D.ER 11:16 → D.MS 14:35 → OBSVTIME 14:35 → D.SDCHOLD 14:35 → D.MS 16:47
PROVIDERS: Emergency Medicine; Internal Medicine Gastroenterology; Surgery; ADMIT Family Medicine
PROC: 0DJD8ZZ Inspection of Lower Intestinal Tract, Via Natural or Artificial Opening Endoscopic (ICD-10-PCS; principal; 2016-12-02 16:00)
PROC: 0DTF0ZZ Resection of Right Large Intestine, Open Approach (ICD-10-PCS; 2016-12-03 13:45)
PROC: 0JH63XZ Insertion of Tunneled Vascular Access Device into Chest Subcutaneous Tissue and Fascia, Percutaneous Approach (ICD-10-PCS; 2016-12-09)
PROC: 02HV33Z Insertion of Infusion Device into Superior Vena Cava, Percutaneous Approach (ICD-10-PCS; 2016-12-09)
PROC: B5181ZA Fluoroscopy of Superior Vena Cava using Low Osmolar Contrast, Guidance (ICD-10-PCS; 2016-12-09)
DX: C18.2 Malignant neoplasm of ascending colon (principal); C18.0 Malignant neoplasm of cecum; C77.2 Secondary and unspecified malignant neoplasm of intra-abdominal lymph nodes; E86.0 Dehydration; K59.00 Constipation, unspecified; E87.6 Hypokalemia; I10 Essential (primary) hypertension; D12.4 Benign neoplasm of descending colon; K64.4 Residual hemorrhoidal skin tags; D50.9 Iron deficiency anemia, unspecified

== ENCOUNTER → 2017-01-12 08:54 | Outpatient (CLI) | payer MEDICARE, OTHER ==
[2016-12-01 14:28] VITALS: BMI 24.5
--- NOTE | 2017-01-28 16:56 | EC ---
PATIENT:MADIHA DIXON DATE OF SERVICE: 01/12/17 SEX: F MEDICAL RECORD: [id number] DATE OF : 43 [facility]ATION[facility] AGE OF PATIENT: 71 ADMISSION DATE: 01/12/17 REFERRING PHYSICIAN: INTERPRETING PHYSICIAN: URIAH WATSON MD ECHOCARDIOGRAM REPORT ECHO CHARGES 4 ECHO COMPLETE CLINICAL DIAGNOSIS: MALIGNANT NEOPLASM OF ASCENDING COLON ECHOCARDIOGRAPHIC MEASUREMENTS (adult normal given) AC root (d.<3.7cm) 3.2 cm LV Septum d (<1.2 cm> 1.2 cm Valve Excursion 2.1 cm LV Septum (systole) 2.0 cm Left Atria (s.<4.0cm> 3.6 cm LVPW d(<1.2cm) 1.4 cm RV (d.<2.3cm) 2.3 cm LVPW (sytole) 1.8 cm LV diastole(<5.6CM) 4.8 cm MV E-F(>70mm/sec) cm LV systole 2.3 cm LVOT Diameter 1.7 cm MV exc.(>10mm) cm Est.ejection fraction (50-75%) % Pericardial Effusion N DOPPLER: LVIT cm/sec A 80.0 cm/sec E 69.0 cm/sec LA cm/sec RVSP 21.3 mmHg LVOT 101 cm/sec AOP1/2T m/s Asc. Ao 133 cm/sec RVOT 54.0 cm/sec RA cm/sec PA 73.0 cm/sec AV Gradient Peak 7.0 mmHg AV Mean 3.1 mmHg AV Area 1.7 cm MV Gradient Peak 2.9 mmHg MV Mean 0.94 mmHg MV Area cm COMMENTS: Plate Put In Worker: Jeffery GILES Fiscal Clerk: 3 Dr. Jiménez TAPE# PACS DATE OF SERVICE: 01/12/2017 FINDINGS: 1. Left ventricular chamber size is within normal limits. Left ventricular systolic function is normal. Overall ejection fraction estimated at 55%. 2. Left atrium, right atrium, and right ventricle chamber sizes are within normal limits. 3. Valvular structures have normal structure and motion. 4. Doppler interrogation reveals [id number] aortic insufficiency, mild tricuspid regurgitation, mild mitral regurgitation. No other valvular ECHOCARDIOGRAM REPORT [id number] MADIHA DIXON insufficiency or stenosis. Pulmonary systolic pressure is normal, estimated at 21 mmHg. 5. No evidence of pericardial effusion or left ventricular thrombus. TRANSINT:[id number] Voice Confirmation ID: [id number] DOCUMENT ID: [id number] URIAH WATSON MD at 1656 CC: MAYTE FITZPATRICK MD [id number] DICTATION DATE: 01/13/17 1242 BUTCHER HEAD: 01/13/17 1354 DEP CLI 01/12/17 [id number] [place] [address]
== END | disposition home or self-care (01) ==
LOC: D.ECHO 08:54
DX: C18.2 Malignant neoplasm of ascending colon (principal)

== ENCOUNTER → 2017-08-08 08:53 | Outpatient (CLI) | payer MEDICARE ==
[2016-12-01 14:28] VITALS: BMI 24.5
[~2017-08-08 08:53] MED LIST changes: +CARAFATE1 G PO; +NEXIUM40 MG PO; +PHENERGAN25 M1 PO
== END | disposition home or self-care (01) ==
LOC: D.NM 08:53
DX: C18.2 Malignant neoplasm of ascending colon (principal)

== ENCOUNTER 2017-08-10 05:40 | Outpatient (CLI) | payer MEDICARE ==
[~2017-08-10] VITALS: Ht 167.6 cm; Wt 64.1 kg
[~2017-08-10 05:40] MED LIST changes: -CARAFATE1 G PO; -NEXIUM40 MG PO; -PHENERGAN25 M1 PO
[2017-08-10] MEDS ORDERED: NEXIUM40 MG PO (06:56)
[2017-08-10] MEDS ORDERED: CARAFATE1 G PO (06:56)
[2017-08-10] MEDS ORDERED: PHENERGAN25 M1 PO (06:57)
[2017-08-10 07:10] VITALS: BP 132/64; Ht 167.6 cm; Wt 64.1 kg
[2017-08-10 07:47] LABS: HEMATOCRIT 36.8 % (36.0-48.0); HEMOGLOBIN 12.3 g/dL (12-16); MCHC 33.4 g/dL (31.0-37.0); MCV 104.8 fL (80.0-100.0); MEAN PLATELET VOLUME 10.7 fL (7.4-10.4); RBC 3.51 10x6/uL (4.00-5.40); RDW 13.4 % (11.5-14.5); WBC 5.2 10x3/uL (4.8-10.8)
[2017-08-10 07:55] LABS: PLATELET COUNT 138 10x3/uL (130-400)
[2017-08-10 08:01] LABS: CALC OSMOLALITY 280 mosm/kg (275-300); CALCIUM 8.7 mg/dL (8.5-10.1); CARBON DIOXIDE 27.2 mmol/L (21.0-32.0); CHLORIDE - SERUM 106 mmol/L (98-107); CREATININE - SERUM 0.6 mg/dL (0.6-1.3); GLUCOSE 94 mg/dL (74-106); POTASSIUM - SERUM 3.6 mmol/L (3.5-5.1); SODIUM 141 mmol/L (136-145); UREA NITROGEN 12 mg/dL (7-18); eGFR NON AFRICAN AMERICAN > 90 mL/min (90-120)
[2017-08-10 08:02] LABS: INR 1.06 (0.85-1.17); PROTIME 13.4 SECONDS (11.6-15.0)
[2017-08-10 08:28] LABS: EOSINOPHILS 6 % (0-7); LYMPHOCYTES 31 % (15-50); MONOCYTES 12 % (2-11); NEUTROPHILS 50 % (40-80); PLATELET ESTIMATE NORMAL; ROULEAUX OCC
[2017-08-10 09:27] LABS: APTT 28.7 SECONDS (22.8-39.4)
== END 2017-08-10 11:40 | disposition home or self-care (01) ==
LOC: D.SP 05:40
PROVIDERS: General Practice
DX: R91.1 Solitary pulmonary nodule (principal); C18.2 Malignant neoplasm of ascending colon; Z01.812 Encounter for preprocedural laboratory examination

== ENCOUNTER 2017-08-19 09:50 | Outpatient (CLI) | payer MEDICARE ==
[~2017-08-19] VITALS: Ht 167.6 cm; Wt 65.5 kg
[~2017-08-19 09:50] MED LIST changes: +CARAFATE1 G PO; +NEXIUM40 MG PO; +PHENERGAN25 M1 PO
[2017-08-19 10:56] VITALS: Ht 167.6 cm; Wt 65.5 kg
[2017-08-19 11:40] LABS: BASOPHILS 0.5 % (0-2); EOSINOPHILS 6.4 % (0-7); HEMATOCRIT 38.1 % (36.0-48.0); LYMPHOCYTES 17.5 % (15-50); MCH 35.3 pg (26.0-34.0); MCHC 34.1 g/dL (31.0-37.0); MCV 103.5 fL (80.0-100.0); MEAN PLATELET VOLUME 10.7 fL (7.4-10.4); MONOCYTES 17.9 % (2-11); NEUTROPHILS 57.7 % (40-80); PLATELET COUNT 154 10x3/uL (130-400); RBC 3.68 10x6/uL (4.00-5.40); RDW 12.8 % (11.5-14.5); WBC 5.8 10x3/uL (4.8-10.8)
[2017-08-19 11:57] LABS: CALC OSMOLALITY 279 mosm/kg (275-300); CALCIUM 8.8 mg/dL (8.5-10.1); CARBON DIOXIDE 31.3 mmol/L (21.0-32.0); CHLORIDE - SERUM 104 mmol/L (98-107); CREATININE - SERUM 0.6 mg/dL (0.6-1.3); GLUCOSE 88 mg/dL (74-106); POTASSIUM - SERUM 3.9 mmol/L (3.5-5.1); SODIUM 141 mmol/L (136-145); UREA NITROGEN 12 mg/dL (7-18); eGFR NON AFRICAN AMERICAN > 90 mL/min (90-120)
[2017-08-19 12:34] LABS: APTT 39.8 SECONDS (22.8-39.4); INR 1.01 (0.85-1.17); PROTIME 12.9 SECONDS (11.6-15.0)
== END 2017-08-19 17:10 | disposition home or self-care (01) ==
LOC: D.SP 09:50 → D.RAD 12:00 → D.SP 12:00
PROVIDERS: General Practice
DX: C18.2 Malignant neoplasm of ascending colon (principal); I10 Essential (primary) hypertension; Z01.812 Encounter for preprocedural laboratory examination

== ENCOUNTER 2017-08-30 07:38 | Outpatient (CLI) | payer MEDICARE ==
[2017-08-19 10:56] VITALS: BMI 23.3
--- NOTE | ~2017-08-30 | EC ---
PATIENT:MADIHA DIXONCLAIR DATE OF SERVICE: SEX: F MEDICAL RECORD: [id number] DATE OF : 43 LOCATION:[facility] AGE OF PATIENT: 72 ADMISSION DATE: 08/30/17 REFERRING PHYSICIAN: INTERPRETING PHYSICIAN: URIAH ALCOCER MD ECHOCARDIOGRAM REPORT ECHO CHARGES 4 ECHO COMPLETE Date: 08/30 CLINICAL DIAGNOSIS: SYNCOPE, HX OF CA, POST CHEMO CHECK, HX OF EFFUSION ON CT ECHOCARDIOGRAPHIC MEASUREMENTS (adult normal given) AC root (d.<3.7cm) 3.0 cm LV Septum d (<1.2 cm> 1.2 cm Valve Excursion 1.3 cm LV Septum (systole) 1.4 cm Left Atria (s.<4.0cm> 4.2 cm LVPW d(<1.2cm) 1.3 cm RV (d.<2.3cm) 3.4 cm LVPW (sytole) 1.4 cm LV diastole(<5.6CM) 4.3 cm MV E-F(>70mm/sec) cm LV systole 2.6 cm LVOT Diameter 1.4 cm MV exc.(>10mm) 1.7 cm Est.ejection fraction (50-75%) % DOPPLER: LVIT cm/sec A 82.0 cm/sec E 74.0 cm/sec LA cm/sec RVSP 21 mmHg LVOT 120 cm/sec AOP1/2T 759 m/s Asc. Ao 169 cm/sec RVOT 81 cm/sec RA cm/sec PA 110 cm/sec AV Gradient Peak 11.42mmHg AV Mean 5.96 mmHg AV Area 2.4 cm MV Gradient Peak 3.17 mmHg MV Mean 1.06 mmHg MV Area cm COMMENTS: Grievance And Appeals Coordinator: Rex HUI Bid Clerk: 1 Dr. Alcocer TAPE# PACS Pericardial Effusion N DATE OF SERVICE: 08/30/2017 ECHOCARDIOGRAM FINDINGS: 1. Left ventricular chamber size is within normal limits. Left ventricular systolic function is normal. Overall ejection fraction estimated at 60%. 2. Left atrium is enlarged at 4.2 cm. Right atrium and right ventricle chamber sizes are upper limits of normal. 3. Valvular structures have normal structure and motion. ECHOCARDIOGRAM REPORT [id number] MADIHA DIXONCLAIR 4. Doppler interrogation reveals moderate aortic insufficiency, mild tricuspid regurgitation, no other valvular insufficiency or stenosis. 5. No evidence of ASD, VSD. 6. No evidence of pericardial effusion or left ventricular thrombus. TRANSINT:[id number] Voice Confirmation ID: [id number] DOCUMENT ID: [id number] URIAH ALCOCER MD at 1711 CC: [id number] DICTATION DATE: 08/30/172109 WORLD LANGUAGE TEACHER: 08/30/172210 [place] [id number] [place] [id number]
== END 2017-08-30 07:39 | disposition home or self-care (01) ==
LOC: D.ECHO 07:38
DX: C18.9 Malignant neoplasm of colon, unspecified (principal); R55 Syncope and collapse

== ENCOUNTER → 2017-09-14 08:35 | Outpatient (CLI) | payer MEDICARE ==
[2017-08-19 10:56] VITALS: BMI 23.3
== END | disposition home or self-care (01) ==
LOC: D.CT 09-07 09:00
DX: C18.2 Malignant neoplasm of ascending colon (principal)